=== PATIENT | male | born 1965 | race Caucasian/White ===

== ENCOUNTER 2018-09-21 09:19 | Observation (INO) ==
--- NOTE | 2018-09-14 12:46 | Anesthesiology Consultation ---
Date of Service September 14, 2018 Assessment & Plan (1) Encounter for pre-operative examination: Chart Review Chart Review: Acceptable Risk for Surgery and Patient NOT seen in Pre Admission Testing History Surgery Operation Date: 09/21/18 12:10 Proposed Procedures p L4-L5, L5-S1 Laminectomy - Van Yanes DO Height/Weight Height: 6 ft 2 in Weight: 122.47 kg Allergies Allergy/AdvReac Type Severity Reaction Status Date / Time No Known Allergies Allergy Unverified 09/14/18 09:05 Medications Home Medications Medication Instructions Recorded Confirmed Last Taken losartan 50 mg PO QAM 07/18/18 09/14/18 07/18/18 acetaminophen [Tylenol] 325 mg PO Q6H PRN 09/14/18 09/14/18 Unknown omeprazole 20 mg PO QAM 09/14/18 09/14/18 Unknown Past Medical History Medical History Scoliosis Hypertension Chronic back pain NECK S/P CERVICAL STEROID INJECTIONS GERD (gastroesophageal reflux disease) Obesity Osteoarthritis Past Surgical History Surgical History History of herniorrhaphy RIGHT INGUINAL Hx of reduction of closed fracture LLE (AGE 18) Social History Smoking Status: Current every day smoker tobacco type: cigarettes Smoking cigarettes per day: 1PPD Do You Dip or Chew Tobacco: No Hx Alcohol Use: Yes Alcohol type: beer alcohol intake frequency: a few times a week Hx Substance Use: No Testing Electrocardiogram Date: 09/04/18 Findings: + NSR @ (84) Laboratory Results 09/04/18 WBC 7.77 H/H 16.3/46.8 PLATELETS 208 SODIUM 135 POTASSIUM 4.0 CHLORIDE 103 CO2 26 BUN 11 CREATININE 0.96 GLUCOSE 119 PT 10.8 PTT 25.4 INR 1.1
--- NOTE | 2018-09-18 11:12 | History and Physical Report ---
DATE OF ADMISSION: 09/21/2018 CHIEF COMPLAINT: Back and lower extremity difficulty, paresthesias, numbness and tingling, failure of conservative measures with stenosis and disk issues at L4-L5 lumbar spine. He is set up for an elective surgery. PAST MEDICAL HISTORY: Positive for hypertension. No COPD, no diabetes mellitus. PAST SURGICAL HISTORY: Hernia repair. ALLERGIES: LOSARTAN, ____. SOCIAL HISTORY: He is . Moderate alcohol. Moderate tobacco. Active lifestyle. REVIEW OF SYSTEMS: He denies any fevers, sweats, chills. Does have some sinus issues. Denies chest pain, palpitations, no asthma or wheezing. No nausea or vomiting. He does have some numbness and tingling. MEDICATIONS: Include prednisone and anti-inflammatories. REVIEW OF SYSTEMS: His major positive review is musculoskeletal numbness, tingling, leg weakness and pain. PHYSICAL EXAMINATION: GENERAL: He is 6 feet 2 inches, 270 pounds. He is alert, oriented, pleasant gentleman. VITAL SIGNS: Stable, blood pressure 130/80, pulse 80. HEENT: Normal. CARDIAC: Normal S1, S2, no S3. LUNGS: Clear to auscultation. No rales, rhonchi, or wheezing. MUSCULOSKELETAL: He has decreased range of motion. He has pain with percussion. He has decreased Achilles reflex on the left hand side. He has straight leg raising pain on the left. He has contralateral straight leg pain, weakness, but no hyperreflexia. Moderate gait abnormality. ASSESSMENT: Spondylosis, stenosis and disc protrusion, lumbar spine. PLAN: Includes a lumbar laminectomy L4 and L5 lumbar spine.
[~2018-09-21 09:19] MED LIST: CEFAZOLIN 3000MG 65 ML IV SCH; LR 15ML/HR IV SCH; SODIUM CHLORIDE 0.9% 1,000 ML IV SCH
[2018-09-21] MEDS ORDERED: fentaNYL citrate 100 MCG/2 ML VIAL IV PRN (11:13)
[2018-09-21] MEDS ORDERED: HYDROmorphone INJ 1 MG/ML SYRINGE IV PRN ×2 (11:13→16:58)
[2018-09-21] MEDS ORDERED: PHENYLEPHRINE 100MCG/ML 5ML SYR IV PRN (11:13)
[2018-09-21] MEDS ORDERED: ePHEDrine sulfate 50 MG/ML AMP IV PRN (11:13)
[2018-09-21] MEDS ORDERED: PROMETHAZINE HCL 12.5 MG in SODIUM CHLORIDE 0.9% 50 ML IV PRN (11:13)
[2018-09-21] MEDS ORDERED: ONDANSETRON INJ 2 MG/ML 2 ML VIAL IV PRN ×2 (11:13→16:58)
[2018-09-21] MEDS ORDERED: ATROPINE SULFATE 0.1 MG/ML 10ML SYR IV PRN (11:13)
[2018-09-21] MEDS ORDERED: fentaNYL citrate 100 MCG/2 ML VIAL ONE ×2 (12:31→14:10)
[2018-09-21] MEDS ORDERED: PROPOFOL IV EMULSION 10 MG/ML 20 ML VIAL IV ONE (12:31)
[2018-09-21] MEDS ORDERED: MIDAZOLAM HCL 1 MG/ML 2ML VIAL ONE (12:31)
[2018-09-21] MEDS ORDERED: ROCURONIUM BROMIDE 10 MG/ML 5 ML VIAL ONE (12:31)
[2018-09-21] MEDS ORDERED: THROMBIN FOR SOLN 20000 UNIT KIT ONE (13:14)
[2018-09-21] MEDS ORDERED: VANCOMYCIN HCL 1000MG/20ML VIAL ONE (13:14)
[2018-09-21] MEDS ORDERED: GELATIN SPONGE SZ 100 ONE (13:14)
[2018-09-21] MEDS ORDERED: BUPIVACAINE/EPINEPHRINE 0.5% MPF 1:200,000 30 ML VIAL ONE (13:14)
[2018-09-21] MEDS ORDERED: BACITRACIN INJ 50,000 UNIT VIAL ONE (13:14)
--- NOTE | 2018-09-21 13:24 | History & Physical Bridge Note ---
Date of Service September 21, 2018 History & Physical Bridge Note I have examined the patient, reviewed the History & Physical and in the interval since the performance of the History & Physical I have noted the following changes of clinical significance: no changes noted
[2018-09-21] MEDS ORDERED: NEOSTIGMINE METHYLSULFATE 5 MG/5 ML SYR ONE (14:48)
[2018-09-21] MEDS ORDERED: GLYCOPYRROLATE 0.2 MG/ML VIAL ONE (14:48)
[2018-09-21] MEDS ORDERED: KETOROLAC 30 MG/ML VIAL ONE (14:48)
--- NOTE | 2018-09-21 15:10 | Post Operative Brief Note ---
Immediate Post Op Note v1 Date of Surgery September 21, 2018 Pre & Post Diagnosis Operation Date: 09/21/18 12:40 Pre-Op Diagnosis: Spinal Stenosis, Disc Herniation Post-Op Diagnosis: Spinal Stenosis, Disc Herniation Procedure Operation Date: 09/21/18 12:40 Actual Procedures p L4-L5, L5-S1 Laminectomy(Not Applicable) - Van Yanes DO Surgeon Van Yanes DO Sole Cutter errol Estimated Blood Loss 75 Findings Consistent with Post-Op Diagnosis Drains Hemovac Drain Complications none Disposition Accompanied Patient To Recovery: Yes Overlapping Procedure I was immediately available: during the entire case.
--- NOTE | 2018-09-21 15:20 | Fluoroscopy Report ---
FL spine 1V any level HISTORY: Laminectomy. FLUOROSCOPY TIME: 2 seconds. FINDINGS: Intraoperative fluoroscopy was provided for the lumbar spine. 2 fluoroscopic spot images we re obtained. IMPRESSION: Fluoroscopy provided for a lumbar laminectomy from L5 through S1. The above report was generated using voice recognition software. It may contain grammatical, syntax or spelling errors. Electronically signed by: Silvio Granger M.D. 09/21/2018 3:19 PM
[2018-09-21] MEDS ORDERED: LABETALOL HCL IV 5 MG/ML 20ML IV ONE (15:41)
[2018-09-21] MEDS: LABETALOL HCL IV 5 MG/ML 20ML IV PRN ×3 (15:44→16:06)
[2018-09-21] MEDS ORDERED: HYDROmorphone INJ 0.5 MG/0.5 ML SYR IV PRN (16:58)
[2018-09-21] MEDS ORDERED: MAGNESIUM HYDROXIDE SUSP 30 ML UDC PO PRN (16:58)
[2018-09-21] MEDS ORDERED: OXYCODONE HCL IR 5 MG TAB (IMMEDIATE RELEASE) PO PRN (16:58)
[2018-09-21] MEDS ORDERED: ACETAMINOPHEN 1,000 MG/100 ML VIAL IV STA (17:23)
--- NOTE | 2018-09-21 17:24 | Anesthesiology Progress Note ---
Date of Service September 21, 2018 Anesthesia Post Procedure Vital Signs Vital Signs: Temp Pulse Pulse Resp BP BP Pulse Ox 09/21/18 16:50 36.5 C 63 18 164/99 H 95 09/21/18 16:35 64 15 153/98 H 95 09/21/18 16:30 36.5 C 64 16 149/99 H 97 09/21/18 16:20 66 18 155/98 H 96 09/21/18 16:10 65 18 150/98 H 95 09/21/18 16:00 65 17 158/97 H 96 09/21/18 15:50 69 18 168/105 H 96 09/21/18 15:40 75 17 161/104 H 95 09/21/18 15:30 85 15 164/107 H 94 09/21/18 15:22 36.6 C 96 H 11 L 158/106 H 98 09/21/18 10:18 36.7 C 84 20 175/107 H 95 Pain Intensity Lower Medial Back: Pain Intensity: 2 Notes Mental Status: alert / awake / arousable Patient Amnestic to Procedure: Yes Nausea / Vomiting: adequately controlled Pain: adequately controlled Airway Patency, RR, SpO2: stable & adequate BP & HR: stable & adequate Hydration State: stable & adequate Anesthetic Complications: no major complications apparent Notes: Doing well, no complaints. BP improved after IV labetalol. VSS
[2018-09-21] MEDS ORDERED: SODIUM CHLORIDE 0.9% 1000ML 1,000 ML IV SCH (17:30)
--- NOTE | 2018-09-21 18:24 | Consultation ---
Date of Consultation September 21, 2018 Assessment & Plan (1) Back pain: Post op with Dr. Yanes Pre-op Hb 16.3 (2) Hypertension: BP is elevated in the setting of held AM meds due to surgery, pain control, and possible nicotine withdrawal Elevation is c/w missed meds Advised to give pt's home dose and recheck (3) GERD (gastroesophageal reflux disease): continue home meds (4) DVT prophylaxis: As per ortho (5) Tobacco use disorder: Likely contributing to elevated BP Will order a patch History of Present Illness Attending Physician: Van Yanes DO History of Present Illness 53 y/o M who was admitted on 09/21 s/p L4-5/L5-S1 laminectomy with Dr. Yanes. I was called by nursing after Dr. Yanes requested a stat c/s for a BP of 165 systolic. Nursing reports to me that pt usually takes losartan, but that this was held today for surgery. Pt is doing well post-op. He does have moderate pain after being moved to his room. Tolerating PO without issue. Pt denies fever, SOB, chest pain, abd pain, n/v/c/d, LE swelling.Pt states he smokes 1ppd and is craving a cigarette at this point. Allergies Allergy/AdvReac Type Severity Reaction Status Date / Time No Known Allergies Allergy Verified 09/21/18 10:16 Home Medications Home Medications Medication Instructions Recorded Confirmed Type losartan 50 mg PO QAM 07/18/18 09/21/18 History acetaminophen [Tylenol] 325 mg PO Q6H PRN 09/14/18 09/21/18 History omeprazole 20 mg PO QAM 09/14/18 09/21/18 History Patient History Medical History Scoliosis Hypertension Chronic back pain NECK S/P CERVICAL STEROID INJECTIONS GERD (gastroesophageal reflux disease) Osteoarthritis Obesity Surgical History History of herniorrhaphy RIGHT INGUINAL Hx of reduction of closed fracture LLE (AGE 18) Family History Other No pertinent family history Social History Preferred Language: Wolof Communication Ability: Effective 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 Beliefs That Will Affect Care: None marital status: Current Living Situation: Spouse current occupational status: employed Other Information That Helps Us Care for You: No Feels Safe at Home: Yes Safety Concerns: Feels Safe At This Time Smoking Status: Current every day smoker Hx Alcohol Use: Yes Hx Substance Use: No Review of Systems Pertinent positives and negatives reviewed in HPI--all others negative Physical Exam Vital Signs (Past 24 Hours): Last Vital Signs Temp 36.5 C 09/21/18 17:20 Pulse 91 H 09/21/18 18:00 Resp 20 09/21/18 17:50 BP 156/102 H 09/21/18 18:00 Pulse Ox 93 09/21/18 17:50 Constitutional: WD/WN, vitals as above + obese Eyes: normal visual gordon by confrontation and + anicteric sclerae Neck: normal visual inspection and trachea midline Respiratory: normal respiratory effort, lungs clear to auscultation Cardiovascular: Rate/Rhythm: regular rate and regular rhythm Gastrointestinal (Abdomen): Inspection/Auscultation: abdomen not distended Percussion/Palpation: abdomen soft; abdomen nontender Musculoskeletal: Head/Neck/Chest: normocephalic and head atraumatic negative for edema, peripheral pulses intact Skin: no rashes, warm and dry Neurologic: awake; not confused Speech / Cognition: normal speech Psychiatric: A+Ox3, euthymic affect
[2018-09-21] MEDS: LOSARTAN POTASSIUM 50 MG TAB PO SCH (18:39)
[2018-09-21] MEDS: NICOTINE 21 MG/24 HR TDSY TD SCH (19:42)
[2018-09-21] MEDS: DOCUSATE SODIUM 100 MG CAP PO SCH (21:34)
[2018-09-21] MEDS: CEFAZOLIN 2000MG 2,000 MG/15 ML SYR IV SCH (21:37)
--- NOTE | 2018-09-22 00:01 | Operative Report ---
DATE OF OPERATION: 09/21/2018 PREOPERATIVE DIAGNOSES: Spinal stenosis at L4-L5 and L5-S1 and disc herniation at L5-S1 on the left. POSTOPERATIVE DIAGNOSES: Spinal stenosis at L4-L5 and L5-S1 and disc herniation at L5-S1 on the left. PROCEDURES: Include, 1. Laminectomy at L4-L5 and L5-S1, foraminotomies and partial facetectomies bilaterally. 2. Discectomy at L5-S1 on the left. COMPLICATIONS: Zero. BLOOD LOSS: Less than 100 mL. SURGEON: Van Yanes DO SAP PORTAL DEVELOPER: Ren Pastor PA-C DESCRIPTION OF PROCEDURE: The patient was taken to the Operating Room, a general intubated anesthetic provided to the patient, placed prone, prepped and draped sterile. I made a skin incision, fascial incision, putting a deep self-retaining retractor, did laminectomies at L4-L5 and L5-S1, foraminotomies and partial facetectomy. We decompressed each nerve root undercutting the facet joint. Also, on the left hand side, we retracted the dura and nerve root medial at L5-S1 and did discectomy at this level. There was no significant free fragment. We irrigated thoroughly. We closed in layers over Hemovac drain and vancomycin powder, 3-0 nylon on the skin. Sterile dressings applied. The patient returned to PACU stable. There were no complications. Sponge and needle count correct and no implants used. I attest to the content of the Intraoperative Record and any orders documented therein. Any exception s are noted below.
[2018-09-22] MEDS: OXYCODONE HCL IR 5 MG TAB (IMMEDIATE RELEASE) PO PRN ×2 (00:27→10:38)
[2018-09-22] MEDS ORDERED: INFLUENZA VIRUS QUAD VACCINE 0.5 ML SYR IM ONE (03:30)
[2018-09-22] MEDS ORDERED: INFLUENZA ADMINISTRATION CHARGE ONE (03:30)
[2018-09-22] MEDS: CEFAZOLIN 2000MG 2,000 MG/15 ML SYR IV SCH ×2 (05:03→12:12)
--- NOTE | 2018-09-22 08:05 | Anesthesiology Progress Note ---
Date of Service September 22, 2018 Anesthesia Post Procedure Vital Signs Vital Signs: Temp Pulse Pulse Resp BP BP Pulse Ox 09/22/18 07:05 36.9 C 84 20 160/103 H 163/108 H 95 09/22/18 03:53 36.6 C 81 18 172/92 H 93 09/21/18 23:31 36.7 C 81 18 165/96 H 94 09/21/18 21:33 158/98 H 147/97 H 09/21/18 20:31 37.0 C 78 18 158/84 H 93 09/21/18 19:47 36.6 C 80 16 150/92 H 94 09/21/18 18:53 37.2 C 76 18 160/98 H 93 09/21/18 18:00 91 H 156/102 H 09/21/18 17:50 88 20 167/113 H 93 09/21/18 17:20 36.5 C 77 20 159/98 H 92 09/21/18 16:50 36.5 C 63 18 164/99 H 95 09/21/18 16:35 64 15 153/98 H 95 09/21/18 16:30 36.5 C 64 16 149/99 H 97 09/21/18 16:20 66 18 155/98 H 96 09/21/18 16:10 65 18 150/98 H 95 09/21/18 16:00 65 17 158/97 H 96 09/21/18 15:50 69 18 168/105 H 96 09/21/18 15:40 75 17 161/104 H 95 09/21/18 15:30 85 15 164/107 H 94 09/21/18 15:22 36.6 C 96 H 11 L 158/106 H 98 09/21/18 10:18 36.7 C 84 20 175/107 H 95 Pain Intensity Lower Medial Back: Pain Intensity: 4 Notes Mental Status: alert / awake / arousable Patient Amnestic to Procedure: Yes Nausea / Vomiting: adequately controlled Pain: adequately controlled Airway Patency, RR, SpO2: stable & adequate BP & HR: stable & adequate Hydration State: stable & adequate Anesthetic Complications: no major complications apparent and Pt Satisfied with anesthetic care
--- NOTE | 2018-09-22 08:07 | Discharge Summary ---
DATE OF DISCHARGE: 09/22/18 SUBJECTIVE: He is alert, oriented. Minimal complaints of pain. Some back pain. No shortness of breath, chest pain, nausea, vomiting. He is alert, oriented. ASSESSMENT: Status post multiple level spinal surgery. PLAN: We will tentatively discharge home later today around 3:00 in the afternoon. He has a followup in 10 days. He has instructions on his chart. He has prescriptions at home and we should see him back in the office in 12 days.
[2018-09-22] MEDS: NICOTINE 21 MG/24 HR TDSY TD SCH (08:32)
[2018-09-22] MEDS: LOSARTAN POTASSIUM 50 MG TAB PO SCH (08:32)
[2018-09-22] MEDS: DOCUSATE SODIUM 100 MG CAP PO SCH ×2 (08:32→22:10)
[2018-09-22] MEDS: PANTOprazole 40 MG TAB PO SCH (08:33)
[2018-09-22] MEDS ORDERED: LOSARTAN POTASSIUM 50 MG TAB PO SCH (09:00)
[2018-09-22 09:15] LABS: Hematocrit (blood only) 42.1 % (42-52); Hemoglobin 14.8 g/dL (14.0-18.0); Mean Corpuscular Hgb Conc 35.2 g/dL (32-36); Mean Platelet Volume 10.3 fL (7.4-10.4); Platelet Count 199 K/uL (130-400); RDW Coefficient of Variation 12.5 % (11.5-14.5); RDW Standard Deviation 42.9 fL (36.4-46.3); Red Blood Count 4.48 M/uL (4.7-6.1)
[2018-09-22] MEDS ORDERED: hydroCHLOROthiazide 25 MG TAB PO SCH (09:45)
[2018-09-22 09:46] LABS: BUN Creatinine Ratio 11.6 (10-20); Calcium 8.4 mg/dl (8.5-10.1); Creatinine Clr Calc Pharmacy 108.6 ml/min; Est GFR (Non-African American) 76.8; Potassium 3.9 mmol/L (3.5-5.1)
--- NOTE | 2018-09-22 10:16 | Hospitalist Progress Note ---
Date of Service September 22, 2018 Assessment & Plan (1) Back pain: - POD#1 following lumbar procedure. - Pain control per primary team. - H/H stable following procedure. (2) Hypertension: - BP has remained significantly elevated post operatively; likely multi- factorial related to acute pain vs. anxiety related to hospitalization vs. nicotine withdrawal. - No improvement in HTN following HCTZ 12.5 mg and Amlodipine 5 mg today. - Continue Losartan - will give additional 50 mg x 1 dose and increase dose to 100 mg daily starting on 09/23. - Continue addition of Amlodipine 5 mg daily. - Will need close follow up with PCP. (3) GERD (gastroesophageal reflux disease): - Continue home Protonix 40 mg qAM. (4) Tobacco use disorder: - Nicotine patch ordered. - Encouraged tobacco cessation. (5) Hyponatremia: - Na level is decreased below baseline, 131 on morning labs. - Baseline ~133-135. - Avoid use of thiazide diuretics. (6) DVT prophylaxis: - Per ortho team. Dispo: Recommend to monitor for improvement in HTN overnight -- medication adjustments as noted above. Supervising Physician Co-Signing Physician Notes Attending Attestation - Chart reviewed in detail and care plan d/w NOHELIA Araiza. I agree w/ the gibson components of her documentation. BPs continue to be labile and high. Agree with HTN recommendations made by Ms. Araiza. Nicola Mallory MD Subjective Pt. is POD#1 from a lumbar procedure. He developed HTN post operatively. Pt. takes Losartan 50 mg daily at home with goal SBP <140. BP is usually well controlled at home, per patient report. Losartan was resumed post op yesterday. He remained hypertensive throughout the evening with SBP 160's and DBP >100 at times. We discussed BP management at home during rounds today -- pt. was instructed to follow up with his PCP this week. HTN is likely multifactorial related to acute pain, anxiety related to hospitalization, nicotine withdrawal and holding BP med pre operatively. BP remains persistently elevated throughout course of the day following HCTZ 12.5 mg and Amlodipine 5 mg. Will continue to monitor overnight. Review of Systems All systems reviewed & are unremarkable except as noted in HPI & below Constitutional: no fever, no chills, no fatigue, no weakness and no anorexia Eyes: no diplopia, no spots in vision and no worsening vision Respiratory: no cough and no dyspnea Cardiovascular: no chest pain, no palpitations, no syncope and no edema Gastrointestinal: + constipation; no abdominal pain, no nausea and no vomiting Genitourinary (Male): no difficulty urinating Musculoskeletal: + back pain; no joint pain Neurologic: no dizziness and no headache(s) Allergy / Immunological: no rash Physical Exam Vital Signs (Past 24 Hours): Last Vital Signs Temp 36.9 C 09/22/18 08:10 Pulse 84 09/22/18 08:10 Resp 20 09/22/18 08:10 BP 164/97 H 09/22/18 09:31 Pulse Ox 95 09/22/18 08:10 Physical Exam: General: Resting comfortably in no apparent distress; A&OX3 HEENT: NC/AT; PERRLA with EOMI; [place] conjunctiva, MMM. Neck: Supple and nontender Cardiac: RRR w/o murmurs, gallops or rubs Lungs: CTA bilaterally; No rhonchi, wheezing, or rales Abdomen: Bowel normoactive X 4; Nontender to palpation Extremities: Warm. No edema present Neuro: No focal weakness Skin: No rash Results & Data Laboratory Results 09/22/18 09/22/18 Range/Units 09:02 09:02 WBC 15.10 H (4.8-10.8) K/uL RBC 4.48 L (4.7-6.1) M/uL Hgb 14.8 (14.0-18.0) g/dL Hct 42.1 (42-52) % MCV 94.0 (80-100) fL MCH 33.0 (25-34) pg MCHC 35.2 (32-36) g/dL RDW Std Deviation 42.9 (36.4-46.3) fL RDW Coeff of Rekha 12.5 (11.5-14.5) % Plt Count 199 (130-400) K/uL MPV 10.3 (7.4-10.4) fL Sodium 131 L (136-145) mmol/L Potassium 3.9 (3.5-5.1) mmol/L Chloride 98 (98-107) mmol/L Carbon Dioxide 23 (21-32) mmol/L Anion Gap 10.0 (3-11) BUN 13 (7-18) mg/dl Creatinine 1.10 (0.6-1.4) mg/dl Est Cr Clr Drug Dosing 108.6 ml/min Est GFR ( Amer) 89.0 Est GFR (Non-Af Amer) 76.8 BUN/Creatinine Ratio 11.6 (10-20) Glucose 139 H (70-99) mg/dl Calcium 8.4 L (8.5-10.1) mg/dl
[2018-09-22] MEDS: AMLODIPINE BESYLATE 5 MG TAB PO SCH (13:51)
[2018-09-22] MEDS ORDERED: LOSARTAN POTASSIUM 50 MG TAB PO ONE (16:16)
[2018-09-23 00:39] VITALS: O2SAT 93
[2018-09-23] MEDS ORDERED: BISACODYL 5 MG TABEC PO PRN (06:00)
[2018-09-23 06:40] LABS: Hemoglobin 14.8 g/dL (14.0-18.0); Mean Corpuscular Hgb Conc 34.4 g/dL (32-36); Mean Corpuscular Volume 94.1 fL (80-100); Mean Platelet Volume 10.4 fL (7.4-10.4); Platelet Count 191 K/uL (130-400); RDW Coefficient of Variation 12.7 % (11.5-14.5); RDW Standard Deviation 43.6 fL (36.4-46.3); Red Blood Count 4.57 M/uL (4.7-6.1); White Blood Count 12.52 K/uL (4.8-10.8)
[2018-09-23 07:08] LABS: BUN Creatinine Ratio 13.1 (10-20); Calcium 8.6 mg/dl (8.5-10.1); Creatinine Clr Calc Pharmacy 125.8 ml/min; Est GFR (African American) 106.2; Est GFR (Non-African American) 91.7; Potassium 4.2 mmol/L (3.5-5.1)
[2018-09-23] MEDS: DOCUSATE SODIUM 100 MG CAP PO SCH (07:23)
[2018-09-23] MEDS: PANTOprazole 40 MG TAB PO SCH (07:23)
[2018-09-23 07:26] VITALS: PULSE 79; TEMP 98.4
[2018-09-23] MEDS: NICOTINE 21 MG/24 HR TDSY TD SCH (07:55)
[2018-09-23] MEDS: AMLODIPINE BESYLATE 5 MG TAB PO SCH (07:55)
[2018-09-23] MEDS ORDERED: LOSARTAN POTASSIUM 50 MG TAB PO SCH (09:00)
[2018-09-23 10:45] VITALS: BP 153/89
--- NOTE | 2018-09-23 10:51 | Hospitalist Progress Note ---
Date of Service September 23, 2018 Assessment & Plan (1) Back pain: - POD#2 following lumbar procedure. - Pain control per primary team. - H/H stable post operatively. (2) Hypertension: - BP remains elevated but is slightly improved; likely multi-factorial related to acute pain vs. anxiety related to hospitalization vs. nicotine withdrawal. - Continue Losartan - increased to 100 mg PO daily. - Continue addition of Amlodipine 5 mg daily. - Will f/u with PCP on 09/25/18. (3) GERD (gastroesophageal reflux disease): - Continue home Protonix 40 mg qAM. (4) Tobacco use disorder: - Nicotine patch ordered. - Encouraged tobacco cessation. (5) Hyponatremia: - Na level is decreased below baseline, 131 this morning. - Baseline ~133-135. - Avoid use of thiazide diuretics. (6) DVT prophylaxis: - Per ortho team. Dispo: Stable for discharge to home today. Supervising Physician Co-Signing Physician Notes Attending Attestation - Chart reviewed in detail and care plan d/w PA Merary Araiza. I agree w/ the gibson components of her documentation. BPs generally improved. Agree with d/c on norvasc and increased dose of losartan. Will need f/u with PCP within 1 week to recheck BP and recheck BMP due to mildly low Na. Ok for d/c home from medical perspective otherwise. Nicola Mallory MD Subjective Pt. is doing well today, does complain of constipation. He is passing gas, no BMs since admission. Has abd bloating/pain. BP now improved, SBP 160's and DBP <100. Will d/c to home. Review of Systems All systems reviewed & are unremarkable except as noted in HPI & below Constitutional: no fever, no chills, no fatigue, no weakness and no anorexia Respiratory: no cough and no dyspnea Cardiovascular: no chest pain, no palpitations, no syncope and no edema Gastrointestinal: + abdominal pain, + bloating and + constipation; no nausea and no vomiting Genitourinary (Male): no difficulty urinating Musculoskeletal: + back pain Allergy / Immunological: no rash Physical Exam Vital Signs (Past 24 Hours): Last Vital Signs Temp 36.9 C 09/23/18 10:44 Pulse 79 09/23/18 10:44 Resp 16 09/23/18 10:44 BP 153/89 H 09/23/18 10:44 Pulse Ox 93 09/23/18 10:44 Physical Exam: General: Resting comfortably in no apparent distress; A&OX3 HEENT: NC/AT; PERRLA with EOMI; [place] conjunctiva, MMM. Neck: Supple and nontender Cardiac: RRR w/o murmurs, gallops or rubs Lungs: CTA bilaterally; No rhonchi, wheezing, or rales Abdomen: Bowel normoactive X 4; Nontender to palpation Extremities: Warm. No edema present Neuro: No focal weakness Skin: No rash Results & Data Laboratory Results 09/23/18 09/23/18 Range/Units 06:26 06:26 WBC 12.52 H (4.8-10.8) K/uL RBC 4.57 L (4.7-6.1) M/uL Hgb 14.8 (14.0-18.0) g/dL Hct 43.0 (42-52) % MCV 94.1 (80-100) fL MCH 32.4 (25-34) pg MCHC 34.4 (32-36) g/dL RDW Std Deviation 43.6 (36.4-46.3) fL RDW Coeff of Rekha 12.7 (11.5-14.5) % Plt Count 191 (130-400) K/uL MPV 10.4 (7.4-10.4) fL Sodium 131 L (136-145) mmol/L Potassium 4.2 (3.5-5.1) mmol/L Chloride 99 (98-107) mmol/L Carbon Dioxide 24 (21-32) mmol/L Anion Gap 8.0 (3-11) BUN 12 (7-18) mg/dl Creatinine 0.95 (0.6-1.4) mg/dl Est Cr Clr Drug Dosing 125.8 ml/min Est GFR ( Amer) 106.2 Est GFR (Non-Af Amer) 91.7 BUN/Creatinine Ratio 13.1 (10-20) Glucose 101 H (70-99) mg/dl Calcium 8.6 (8.5-10.1) mg/dl
== END 2018-09-23 11:11 | disposition home or self-care (01) ==
LOC: ASU 09:19 → 3E 09:19